=== PATIENT | male | born 1955 | race Caucasian/White ===

== ENCOUNTER 2019-05-27 14:14 | Emergency (ER) | payer MEDICAID ==
[~2019-05-27] VITALS: Ht 185.4 cm; Wt 145.1 kg
--- NOTE | 2019-05-27 14:17 | NUR ---
ED Nurse Note: PT BROUGHT IN BY RA Oliveros FROM [facility] D[facility]T [facility]. PER EMS, EMPTY BOTTLES OF VODKA WAS FOUND NEXT TO THE PATIENT. PT IS SLEEPING WITH NONLABORED BREATHING. NO ACUTE DISTRESS AT THIS TIME.
--- NOTE | 2019-05-27 14:43 | NUR ---
ED Nurse Note: FALL PRECAUTIONS ARE IMPLEMENTED: SIDE RAILS UP X2 WITH BED LOCKED IN LOWEST POSITION.
[2019-05-27 14:45] VITALS: BP 129/86
--- NOTE | 2019-05-27 14:50 | Emergency Room Report ---
History of Present Illness General Chief Complaint: Altered Level of Consciousness Source: EMS Present Illness HPI 64-year-old male presents with altered mental status, after drinking 2 bottles of vodka at the longterm patient was found with 2 empty bottles, his glucose in the field was 324, patient is not giving history but he is responding to stimulus, no other complaints but history is limited secondary to patient's current intoxication Allergies: Coded Allergies: UNABLE TO ASSESS (Unverified , 05/27/19) Patient History Limited by: medical condition - Intoxicated Past Medical History: see triage record Social History: Reports: alcohol use Reviewed Nursing Documentation: PMH: Agreed; PSxH: Agreed Nursing Documentation-PMH Hx Cardiac Problems: Yes - CABG Hx Hypertension: Yes Hx Diabetes: Yes History Of Psychiatric Problem: Yes - Depression Review of Systems All Other Systems: limited - Currently Intoxicated Physical Exam Vital Signs Date Time Temp Pulse Resp B/P (MAP) Pulse Ox O2 Delivery O2 Flow Rate FiO2 05/27/19 14:07 98.1 86 15 137/72 (93) 99 Room Air Sp02 EP Interpretation: reviewed, normal General Appearance: no apparent distress, alert Head: normocephalic, atraumatic Eyes: bilateral eye PERRL, bilateral eye EOMI ENT: uvula midline, moist mucus membranes Neck: supple, thyroid normal, supple/symm/no masses Respiratory: lungs clear, no respiratory distress, no retraction, no accessory muscle use Cardiovascular #1: normal peripheral pulses, regular rate, rhythm, no edema, no gallop, no murmur Gastrointestinal: non tender, soft, no guarding, no rebound Musculoskeletal: normal inspection Neurologic: alert, responsive Psychiatric: mood/affect normal Skin: no rash, warm/dry Medical Decision Making Diagnostic Impression: Primary Impression: Acute alcohol intoxication Qualified Codes: F10.920 - Alcohol use, unspecified with intoxication, uncomplicated ER Course 64-year-old male presents with acute alcohol intoxication patient was found with multiple vodka bottles, denies any head trauma No trauma to the patient, reevaluation 9:22 PM, patient is back to baseline, patient states he likes drinking. Patient is saying yes or no to pain, patient wants to go back Disposition back to assisted living Last Vital Signs Date Time Temp Pulse Resp B/P (MAP) Pulse Ox O2 Delivery O2 Flow Rate FiO2 05/27/19 14:17 85 18 Room Air 05/27/19 14:07 98.1 137/72 (24) 99 Disposition: HOME, SELF-CARE Condition: Stable Referrals: [facility] Nelli Darling. [facility] Patient Instructions: Alcohol Intoxication, [id number] Additional Instructions: The patient was provided with discharge instructions, notified to follow-up with a primary care doctor and or specialist in the next 24-48 hours, and to return to the ED if they have worsening of their symptoms. Please note that this report is being documented using [employer] technology. This can lead to erroneous entry secondary to incorrect interpretation by the dictating instrument. Ed Lee MD May 27, 2019 14:50
[2019-05-27] MEDS ORDERED: LR 1000ml 1,000 ML IV ONE (15:00)
[2019-05-27 17:03] VITALS: BP 135/70
[2019-05-27 19:01] VITALS: BP 133/70
--- NOTE | 2019-05-27 19:17 | NUR ---
HAND-OFF: Report given to KEELEY MANCERA.
[2019-05-27] MEDS ORDERED: chlordiazePOXIDE 25mg Cap ORAL ONE (20:45)
--- NOTE | 2019-05-27 21:00 | NUR ---
ED Nurse Note: Pt resting in bed with eyes closed, non-labored breathing. Offered pt water and toiletting, pt is A&Ox3 at this moment, awaiting other orders. Will continue to monitor
--- NOTE | 2019-05-27 21:21 | NUR ---
Spoke with dayami at [facility]. Confirmed that patient resides there.
--- NOTE | 2019-05-27 22:50 | NUR ---
Spoke with Uzair at [facility] transport ETA-given [phone].
--- NOTE | 2019-05-27 23:11 | NUR ---
ED Nurse Note: Pt side laying with eyes closed, non0 Addendum: 05/27/19 at 2311 by KDEARING ED Nurse Note: Non-labored breathing, no signs of distress. Pt awaiting transport back to [facility] home. Will continue to monitor
[2019-05-27 23:12] VITALS: BP 128/68
--- NOTE | 2019-05-27 23:39 | NUR ---
HAND-OFF: Report given to CALDERON Barrow.
--- NOTE | 2019-05-27 23:49 | NUR ---
[facility] is here, ID band and SL removed, discharge instructions given to [facility]. Also, [employer] will tell someone at [facility] to fax us patients SS# and insurance information since we were not able to get in touch with [employer](the real estate services administrator) despite several calls made with no one answering, leaving messages with no return calls.
[2019-05-28 00:01] VITALS: BP 118/71
[2019-05-28 00:02] VITALS: BP 118/71
== END 2019-05-27 23:49 | disposition home or self-care (01) ==
LOC: EDBD 14:14 → EMR 14:30
DX: F10.920 Alcohol use, unspecified with intoxication, uncomplicated (principal); E11.9 Type 2 diabetes mellitus without complications; I10 Essential (primary) hypertension; Z95.1 Presence of aortocoronary bypass graft; F32.9 Major depressive disorder, single episode, unspecified
CPT/HCPCS: 96360; Z7502; 99284